=== PATIENT | female | born 2000 | race African-American/Black ===

== ENCOUNTER 2022-05-02 08:29 | Emergency (ER) | payer MEDICAID ==
[~2022-05-02] VITALS: Ht 157.5 cm; Wt 72.7 kg
[2022-05-02] MEDS ORDERED: AZITHROMYCIN 500 MG TABLET PO ONE (09:30)
[2022-05-02] MEDS ORDERED: CefTRIAXone SODIUM 1 GM/VIAL IM ONE (09:30)
[2022-05-02] MEDS ORDERED: LIDOCAINE/PF 1% 2 ML VIAL IM ONE (09:30)
[2022-05-02 10:08] VITALS: BP 115/61
== END 2022-05-02 10:44 | disposition home or self-care (01) ==
LOC: EMS 08:32
DX: N34.2 Other urethritis (principal); F12.90 Cannabis use, unspecified, uncomplicated
CPT/HCPCS: 99283; 96372; J0696; J3490; Q9967